=== PATIENT | male | born 1960 | race Caucasian/White ===

== ENCOUNTER 2017-03-08 00:28 | Inpatient (IN) | payer MEDICAID, OTHER ==
[~2017-03-08] VITALS: Ht 185.4 cm; Wt 81.6 kg
[2017-03-08] VITALS (9 sets, daily range): BP systolic 107–140; BP diastolic 63–76
[~2017-03-08 00:28] MED LIST: ATOR40TA28 PO; IBUP-2070 PO; LIPA1CAP18 PO; LOSA25TA21 PO; METO50TA18 PO; MIRT45TA4 PO; OMEP20 PO; SERT100T12 PO; TRAM50TA4 PO; TRAZ-147 PO
[2017-03-08] MEDS ORDERED: LIB25 PO (00:51)
[2017-03-08] MEDS ORDERED: FAMO20 PO (00:51)
[2017-03-08 01:45] LABS: BASOPHILS # (AUTO) 0.02 K/uL (0.00-0.20); BASOPHILS % (AUTO) 0.4 % (0.0-2.0); EOSINOPHILS # (AUTO) 0.19 K/uL (0.00-0.70); EOSINOPHILS % (AUTO) 3.46 % (1.0-6.0); HEMATOCRIT 33.8 % (41-53); HEMOGLOBIN 10.8 g/dL (13.5-17.5); LYMPHOCYTES # (AUTO) 1.5 K/uL (1.0-4.8); LYMPHOCYTES % (AUTO) 26.3 % (22.0-44.0); MEAN CORPUSCULAR HEMOGLOBIN 29.9 pg (26.0-34.0); MEAN CORPUSCULAR HGB CONC 31.9 G/dL (31.0-37.0); MEAN CORPUSCULAR VOLUME 94 fL (80-100); MONOCYTES # (AUTO) 0.5 K/uL (0.1-1.0); MONOCYTES % (AUTO) 9.5 % (2.0-9.0); NEUTROPHILS # (AUTO) 3.4 K/uL (1.8-7.7); NEUTROPHILS % (AUTO) 60.3 % (40.0-70.0); PLATELET COUNT (AUTO) 276 K/uL (150-450); RED BLOOD CELL COUNT(AUTO) 3.61 MIL/uL (4.50-5.90); RED CELL DISTRIBUTION WIDTH 24.7 % (11.5-14.5); WHITE BLOOD COUNT (AUTO) 5.6 K/uL (4.5-11.0)
[2017-03-08 01:52] LABS: ANION GAP 9 mmol/L (8-16); CARBON DIOXIDE 29 mmol/L (22-29); CHLORIDE 98 mmol/L (98-107); CREATININE 0.88 mg/dL (0.60-1.30); GLOMERULAR FILTR. RATE CALC > 60 mL/min (>60); POTASSIUM 3.9 mmol/L (3.5-5.1); SODIUM SERUM 136 mmol/L (136-145); UREA NITROGEN, BLOOD 14 mg/dL (7-18)
[2017-03-08 01:57] LABS: ALANINE AMINOTRANSFERASE 122 U/L (12-78); ALBUMIN 3.9 g/dL (3.4-5.0); ASPARTATE AMINOTRANSFERASE 44 U/L (15-37); BILIRUBIN,TOTAL 0.6 mg/dL (0.1-1.0)
[2017-03-08] MEDS ORDERED: HALOPERIDOL LACTATE 5 MG/ML VIAL IM ONE (03:00)
[2017-03-08] MEDS ORDERED: THIAMINE HCL 100 MG/ML 2ML VIAL IM ONE (03:00)
[2017-03-08] MEDS ORDERED: HydrOXYzine PAMOATE 50 MG CAPSULE PO PRN (03:00)
[2017-03-08] MEDS ORDERED: HALOPERIDOL 5 MG TABLET PO PRN (03:00)
[2017-03-08] MEDS ORDERED: MAGNESIUM HYDROXIDE SUSPENSION 30 ML UDCUP PO PRN (03:00)
[2017-03-08] MEDS ORDERED: LORazepam 2 MG TABLET PO PRN (03:00)
[2017-03-08] MEDS ORDERED: LOPERAMIDE HCL 2 MG CAPSULE PO PRN ×2 (03:00)
[2017-03-08] MEDS ORDERED: ACETAMINOPHEN 325 MG TABLET PO PRN (03:00)
[2017-03-08] MEDS ORDERED: LORazepam 2 MG/ML VIAL IM ONE (03:00)
[2017-03-08] MEDS ORDERED: PROMETHAZINE HCL 25 MG TABLET PO PRN (03:00)
[2017-03-08] MEDS ORDERED: MAG HYDROX/AL HYDROX/SIMETH ES 30 ML SUSPENSION UDCUP PO PRN (03:00)
[2017-03-08] MEDS ORDERED: CYANOCOBALAMIN 1,000 MCG/ML VIAL IM ONE (03:00)
[2017-03-08 03:03] LABS: RBC MORPHOLOGY COMMENT ABNORMAL RBC MORPH
[2017-03-08 04:27] LABS: APPEARANCE,URINE CLEAR (CLEAR); GLUCOSE, URINE (UA) NEGATIVE (NEGATIVE); KETONES,URINE NEGATIVE (NEGATIVE); LEUKOCYTE ESTERASE ,URINE NEGATIVE (NEGATIVE); OCCULT BLOOD,URINE NEGATIVE (NEGATIVE); PH,URINE 7.5 (5.0-8.0); PROTEIN,URINE POS 1+ (NEGATIVE)
[2017-03-08 04:28] LABS: ADD UA MICROSCOPIC NO
[2017-03-08] MEDS ORDERED: INFLUENZA VIRUS VACCINE QVS 2017-18 (3YR+)/PF 60 MCG/0.5 ML SYRINGE IM ONE (07:15)
[2017-03-08] MEDS: MULTIVITAMINS WITH MINERALS, THERAPEUTIC TABLET PO SCH (10:04)
[2017-03-08] MEDS: THIAMINE HCL 100 MG TABLET PO SCH ×2 (10:04→16:00)
[2017-03-08] MEDS: FOLIC ACID 1 MG TABLET PO SCH (10:04)
[2017-03-08] MEDS: LORazepam 2 MG TABLET PO PRN (10:10)
[2017-03-08] MEDS: TraZODone HCL 100 MG TABLET PO SCH (20:15)
[2017-03-09] VITALS (9 sets, daily range): BP systolic 99–138; BP diastolic 66–101
[2017-03-09] MEDS ORDERED: LORazepam 2 MG TABLET PO PRN (07:00)
[2017-03-09 07:11] LABS: CHOL/HDL RATIO 2.6 (4.2-7.3)
[2017-03-09] MEDS: FOLIC ACID 1 MG TABLET PO SCH (09:38)
[2017-03-09] MEDS: MULTIVITAMINS WITH MINERALS, THERAPEUTIC TABLET PO SCH (09:39)
[2017-03-09] MEDS: SERTRALINE HCL 100 MG TABLET PO SCH (09:39)
[2017-03-09] MEDS: LORazepam 2 MG TABLET PO SCH ×4 (09:39→20:30)
[2017-03-09] MEDS: THIAMINE HCL 100 MG TABLET PO SCH ×2 (09:39→16:51)
[2017-03-09] MEDS: GuaiFENesin/D-METHORPHAN [SUGAR-FREE] 200-20MG/10 ML SYRUP UDCUP PO PRN (16:52)
[2017-03-09] MEDS: TraZODone HCL 100 MG TABLET PO SCH (20:30)
[2017-03-10] MEDS: LORazepam 2 MG TABLET PO PRN ×2 (00:43→11:51)
[2017-03-10 00:48] VITALS: BP 140/95
[2017-03-10 00:51] VITALS: BP 140/95
[2017-03-10] MEDS: MULTIVITAMINS WITH MINERALS, THERAPEUTIC TABLET PO SCH (09:23)
[2017-03-10] MEDS: FOLIC ACID 1 MG TABLET PO SCH (09:23)
[2017-03-10] MEDS: THIAMINE HCL 100 MG TABLET PO SCH ×2 (09:24→16:42)
[2017-03-10] MEDS: SERTRALINE HCL 100 MG TABLET PO SCH (09:24)
[2017-03-10] MEDS: LORazepam 2 MG TABLET PO SCH ×4 (09:26→20:28)
[2017-03-10 13:20] VITALS: BP 133/74
[2017-03-10] MEDS: FAMOTIDINE 20 MG TABLET PO SCH (13:22)
[2017-03-10] MEDS: LOSARTAN POTASSIUM 25 MG TABLET PO SCH (13:22)
[2017-03-10 13:47] VITALS: BP 132/88
[2017-03-10 16:32] VITALS: BP 120/76
[2017-03-10] MEDS: METOPROLOL TARTRATE 50 MG TABLET PO SCH (16:41)
[2017-03-10] MEDS: AMYLASE/LIPASE/PROTEASE 60/12/38 MU DR CAPSULE PO SCH (17:18)
[2017-03-10] MEDS ORDERED: ALBUTEROL SULFATE HFA 90 MCG/PUFF 8 GM INHALER IH PRN (17:30)
[2017-03-10] MEDS ORDERED: MAG HYDROX/AL HYDROX/SIMETH ES 30 ML SUSPENSION UDCUP PO PRN (17:30)
[2017-03-10] MEDS ORDERED: IBUPROFEN 600 MG TABLET PO PRN (17:30)
[2017-03-10] MEDS ORDERED: LOPERAMIDE HCL 2 MG CAPSULE PO PRN (17:30)
[2017-03-10] MEDS ORDERED: MAGNESIUM HYDROXIDE SUSPENSION 30 ML UDCUP PO PRN (17:30)
[2017-03-10] MEDS ORDERED: ACETAMINOPHEN 325 MG TABLET PO PRN (17:30)
[2017-03-10] MEDS ORDERED: BACITRACIN 28.4 GM OINTMENT TP PRN (17:30)
[2017-03-10] MEDS ORDERED: PETROLATUM,WHITE 71 GM JELLY TP PRN (17:30)
[2017-03-10] MEDS ORDERED: CloNIDine HCL 0.1 MG TABLET PO PRN (17:30)
[2017-03-10] MEDS ORDERED: ONDANSETRON HCL 4 MG TABLET PO PRN (17:30)
[2017-03-10] MEDS ORDERED: BENZOCAINE/MENTHOL LOZENGE [8 LOZENGES/PACKET] MM PRN (17:30)
[2017-03-10] MEDS: DOCUSATE SODIUM 100 MG CAPSULE PO SCH (18:55)
[2017-03-10] MEDS: TraZODone HCL 100 MG TABLET PO SCH (20:28)
[2017-03-10] MEDS: ATORVASTATIN CALCIUM 40 MG TABLET PO SCH (20:29)
[2017-03-11 00:14] VITALS: BP 133/74
[2017-03-11 01:32] VITALS: BP 128/75
[2017-03-11] MEDS: AMYLASE/LIPASE/PROTEASE 60/12/38 MU DR CAPSULE PO SCH ×3 (06:56→17:19)
[2017-03-11] MEDS ORDERED: LORazepam 1 MG TABLET PO PRN (07:00)
[2017-03-11 07:35] LABS: HEMOGLOBIN 10.4 g/dL (13.5-17.5); MEAN CORPUSCULAR HEMOGLOBIN 30.1 pg (26.0-34.0); MEAN CORPUSCULAR HGB CONC 32.4 G/dL (31.0-37.0); MEAN CORPUSCULAR VOLUME 93 fL (80-100); PLATELET COUNT (AUTO) 199 K/uL (150-450); RED BLOOD CELL COUNT(AUTO) 3.45 MIL/uL (4.50-5.90); RED CELL DISTRIBUTION WIDTH 24.9 % (11.5-14.5); WHITE BLOOD COUNT (AUTO) 3.9 K/uL (4.5-11.0)
[2017-03-11] MEDS: LOSARTAN POTASSIUM 25 MG TABLET PO SCH (08:08)
[2017-03-11] MEDS: SERTRALINE HCL 100 MG TABLET PO SCH (08:09)
[2017-03-11] MEDS: FAMOTIDINE 20 MG TABLET PO SCH (08:09)
[2017-03-11] MEDS: LORazepam 1 MG TABLET PO SCH ×4 (08:11→20:09)
[2017-03-11] MEDS: DOCUSATE SODIUM 100 MG CAPSULE PO SCH (08:12)
[2017-03-11] MEDS: FOLIC ACID 1 MG TABLET PO SCH (08:12)
[2017-03-11] MEDS: OMEPRAZOLE 20 MG CAPSULE PO SCH (08:12)
[2017-03-11] MEDS: THIAMINE HCL 100 MG TABLET PO SCH ×2 (08:14→17:18)
[2017-03-11] MEDS: MULTIVITAMINS WITH MINERALS, THERAPEUTIC TABLET PO SCH (08:14)
[2017-03-11] MEDS: GuaiFENesin/D-METHORPHAN [SUGAR-FREE] 200-20MG/10 ML SYRUP UDCUP PO PRN (08:15)
[2017-03-11 08:29] LABS: ANION GAP 7 mmol/L (8-16); CALCIUM, TOTAL 8.8 mg/dL (8.8-10.5); CARBON DIOXIDE 28 mmol/L (22-29); CHLORIDE 103 mmol/L (98-107); CHOL/HDL RATIO 2.6 (4.2-7.3); CREATININE 1.09 mg/dL (0.60-1.30); GLOMERULAR FILTR. RATE CALC > 60 mL/min (>60); PHOSPHORUS 4.6 mg/dL (2.5-4.9); POTASSIUM 4.1 mmol/L (3.5-5.1); SODIUM SERUM 138 mmol/L (136-145); THYROID STIMULATING HORMONE 0.88 uIU/mL (0.36-3.74); UREA NITROGEN, BLOOD 13 mg/dL (7-18)
[2017-03-11 08:47] VITALS: BP 134/94
[2017-03-11 08:51] VITALS: BP 134/94
[2017-03-11 09:54] LABS: BAND NEUTROPHILS % (MANUAL) 2 % (1-5); EOSINOPHILS % (MANUAL) 1 % (1-6); LYMPHOCYTES % (MANUAL) 15 % (22-44); TOTAL CELLS COUNTED 100
[2017-03-11 10:01] LABS: RBC MORPHOLOGY COMMENT ABNORMAL R
[2017-03-11 16:00] VITALS: BP 137/81
[2017-03-11] MEDS: METOPROLOL TARTRATE 50 MG TABLET PO SCH (17:18)
[2017-03-11] MEDS: ATORVASTATIN CALCIUM 40 MG TABLET PO SCH (20:09)
[2017-03-11] MEDS: TraZODone HCL 100 MG TABLET PO SCH (20:09)
[2017-03-12 06:34] VITALS: BP 111/73
[2017-03-12 06:36] VITALS: BP 111/73
[2017-03-12] MEDS: AMYLASE/LIPASE/PROTEASE 60/12/38 MU DR CAPSULE PO SCH ×3 (06:45→18:18)
[2017-03-12 07:00] LABS: HEPATITIS Bs ANTIGEN SCREEN P Negative (Negative); HEPATITIS C AB SCREEN <0.1 s/co ratio (0.0-0.9)
[2017-03-12] MEDS ORDERED: LORazepam 1 MG TABLET PO PRN (07:00)
[2017-03-12] MEDS: DOCUSATE SODIUM 100 MG CAPSULE PO SCH (08:29)
[2017-03-12] MEDS: FOLIC ACID 1 MG TABLET PO SCH (08:29)
[2017-03-12] MEDS: MULTIVITAMINS WITH MINERALS, THERAPEUTIC TABLET PO SCH (08:29)
[2017-03-12] MEDS: THIAMINE HCL 100 MG TABLET PO SCH ×2 (08:29→16:14)
[2017-03-12] MEDS: SERTRALINE HCL 100 MG TABLET PO SCH (08:30)
[2017-03-12] MEDS: OMEPRAZOLE 20 MG CAPSULE PO SCH (08:30)
[2017-03-12] MEDS: FAMOTIDINE 20 MG TABLET PO SCH (08:30)
[2017-03-12 08:58] VITALS: BP 102/62
[2017-03-12] MEDS: LOSARTAN POTASSIUM 25 MG TABLET PO SCH (09:00)
[2017-03-12 09:01] VITALS: BP 102/62
[2017-03-12] MEDS ORDERED: OMEP20 PO (09:54)
[2017-03-12] MEDS ORDERED: DSS100 PO (09:54)
[2017-03-12] MEDS: LORazepam 2 MG TABLET PO PRN ×2 (16:14→23:54)
[2017-03-12] MEDS: METOPROLOL TARTRATE 50 MG TABLET PO SCH (16:14)
[2017-03-12 16:21] VITALS: BP 121/85
[2017-03-12] MEDS: TraZODone HCL 100 MG TABLET PO SCH (21:02)
[2017-03-12] MEDS: ATORVASTATIN CALCIUM 40 MG TABLET PO SCH (21:02)
[2017-03-13] VITALS: BP 128/79
[2017-03-13] MEDS: AMYLASE/LIPASE/PROTEASE 60/12/38 MU DR CAPSULE PO SCH ×3 (06:47→17:40)
[2017-03-13] MEDS: SERTRALINE HCL 100 MG TABLET PO SCH (08:28)
[2017-03-13] MEDS: THIAMINE HCL 100 MG TABLET PO SCH ×2 (08:28→17:40)
[2017-03-13] MEDS: OMEPRAZOLE 20 MG CAPSULE PO SCH (08:28)
[2017-03-13] MEDS: MULTIVITAMINS WITH MINERALS, THERAPEUTIC TABLET PO SCH (08:29)
[2017-03-13] MEDS: DOCUSATE SODIUM 100 MG CAPSULE PO SCH (08:29)
[2017-03-13] MEDS: FOLIC ACID 1 MG TABLET PO SCH (08:29)
[2017-03-13] MEDS: FAMOTIDINE 20 MG TABLET PO SCH (08:29)
[2017-03-13] MEDS: LOSARTAN POTASSIUM 25 MG TABLET PO SCH (08:29)
[2017-03-13 09:34] VITALS: BP 117/87
[2017-03-13 16:30] VITALS: BP 123/67
[2017-03-13] MEDS: METOPROLOL TARTRATE 50 MG TABLET PO SCH (17:40)
[2017-03-13] MEDS: LORazepam 2 MG TABLET PO PRN (18:30)
[2017-03-13] MEDS: ATORVASTATIN CALCIUM 40 MG TABLET PO SCH (21:03)
[2017-03-13] MEDS: TraZODone HCL 100 MG TABLET PO SCH (21:03)
[2017-03-13] MEDS: ZOLPIDEM TARTRATE 10 MG TABLET PO PRN (23:44)
[2017-03-14 03:51] VITALS: BP 125/72
[2017-03-14] MEDS: AMYLASE/LIPASE/PROTEASE 60/12/38 MU DR CAPSULE PO SCH ×3 (07:06→17:11)
[2017-03-14 08:00] VITALS: BP 129/79
[2017-03-14] MEDS: FOLIC ACID 1 MG TABLET PO SCH (08:29)
[2017-03-14] MEDS: THIAMINE HCL 100 MG TABLET PO SCH ×2 (08:29→17:11)
[2017-03-14] MEDS: OMEPRAZOLE 20 MG CAPSULE PO SCH (08:29)
[2017-03-14] MEDS: MULTIVITAMINS WITH MINERALS, THERAPEUTIC TABLET PO SCH (08:29)
[2017-03-14] MEDS: DOCUSATE SODIUM 100 MG CAPSULE PO SCH (08:29)
[2017-03-14] MEDS: SERTRALINE HCL 100 MG TABLET PO SCH (08:29)
[2017-03-14] MEDS: LOSARTAN POTASSIUM 25 MG TABLET PO SCH (08:30)
[2017-03-14] MEDS: FAMOTIDINE 20 MG TABLET PO SCH (08:30)
[2017-03-14] MEDS: LORazepam 2 MG TABLET PO PRN ×2 (08:32→17:12)
[2017-03-14 16:41] VITALS: BP 113/77
[2017-03-14] MEDS: METOPROLOL TARTRATE 50 MG TABLET PO SCH (17:11)
[2017-03-14] MEDS ORDERED: MINERAL OIL/PETROLATUM 120 GM CREAM TP PRN (19:30)
[2017-03-14] MEDS: TraZODone HCL 100 MG TABLET PO SCH (20:09)
[2017-03-14] MEDS: ATORVASTATIN CALCIUM 40 MG TABLET PO SCH (20:09)
[2017-03-15 05:49] VITALS: BP 122/67
[2017-03-15] MEDS: AMYLASE/LIPASE/PROTEASE 60/12/38 MU DR CAPSULE PO SCH ×3 (06:34→18:00)
[2017-03-15 08:00] VITALS: BP 115/76
[2017-03-15] MEDS: FAMOTIDINE 20 MG TABLET PO SCH (08:12)
[2017-03-15] MEDS: OMEPRAZOLE 20 MG CAPSULE PO SCH (08:12)
[2017-03-15] MEDS: MULTIVITAMINS WITH MINERALS, THERAPEUTIC TABLET PO SCH (08:12)
[2017-03-15] MEDS: THIAMINE HCL 100 MG TABLET PO SCH ×2 (08:12→17:55)
[2017-03-15] MEDS: LOSARTAN POTASSIUM 25 MG TABLET PO SCH (08:12)
[2017-03-15] MEDS: LORazepam 2 MG TABLET PO PRN ×2 (08:12→22:06)
[2017-03-15] MEDS: DOCUSATE SODIUM 100 MG CAPSULE PO SCH (08:13)
[2017-03-15] MEDS: SERTRALINE HCL 100 MG TABLET PO SCH (08:13)
[2017-03-15] MEDS: FOLIC ACID 1 MG TABLET PO SCH (08:13)
[2017-03-15] MEDS ORDERED: AMYL1CAP62 PO (14:07)
[2017-03-15] MEDS: METOPROLOL TARTRATE 50 MG TABLET PO SCH (17:55)
[2017-03-15 18:43] VITALS: BP 119/71
[2017-03-15] MEDS: ATORVASTATIN CALCIUM 40 MG TABLET PO SCH (20:22)
[2017-03-15] MEDS: TraZODone HCL 100 MG TABLET PO SCH (20:22)
[2017-03-15] MEDS: ZOLPIDEM TARTRATE 10 MG TABLET PO PRN (22:06)
[2017-03-16 06:00] VITALS: BP 123/74
[2017-03-16] MEDS: AMYLASE/LIPASE/PROTEASE 60/12/38 MU DR CAPSULE PO SCH (06:59)
[2017-03-16] MEDS: FAMOTIDINE 20 MG TABLET PO SCH (08:05)
[2017-03-16] MEDS: SERTRALINE HCL 100 MG TABLET PO SCH (08:05)
[2017-03-16] MEDS: LORazepam 2 MG TABLET PO PRN (08:05)
[2017-03-16] MEDS: OMEPRAZOLE 20 MG CAPSULE PO SCH (08:05)
[2017-03-16] MEDS: MULTIVITAMINS WITH MINERALS, THERAPEUTIC TABLET PO SCH (08:06)
[2017-03-16] MEDS: DOCUSATE SODIUM 100 MG CAPSULE PO SCH (08:06)
[2017-03-16] MEDS: THIAMINE HCL 100 MG TABLET PO SCH (08:06)
[2017-03-16] MEDS: LOSARTAN POTASSIUM 25 MG TABLET PO SCH (08:06)
[2017-03-16] MEDS: FOLIC ACID 1 MG TABLET PO SCH (08:06)
== END 2017-03-16 10:00 | disposition home or self-care (01) | DRG 751 ==
LOC: EMS 00:29 → 3EI 02:42 → UNDOADMIN 02:52
PROVIDERS: ADMIT Psychiatry & Neurology Psychiatry; ATTEND Psychiatry & Neurology Psychiatry
DX: F33.2 Major depressive disorder, recurrent severe without psychotic features (principal); K70.30 Alcoholic cirrhosis of liver without ascites; K86.1 Other chronic pancreatitis; R45.851 Suicidal ideations; I10 Essential (primary) hypertension; F10.239 Alcohol dependence with withdrawal, unspecified; E78.5 Hyperlipidemia, unspecified; D63.8 Anemia in other chronic diseases classified elsewhere; E78.00 Pure hypercholesterolemia, unspecified; F43.10 Post-traumatic stress disorder, unspecified; G47.00 Insomnia, unspecified; I25.10 Atherosclerotic heart disease of native coronary artery without angina pectoris; K21.9 Gastro-esophageal reflux disease without esophagitis; R51 Headache; F41.9 Anxiety disorder, unspecified; Z59.0 Homelessness; Z90.411 Acquired partial absence of pancreas; Z95.1 Presence of aortocoronary bypass graft; Z88.2 Allergy status to sulfonamides; Z91.018 Allergy to other foods; Z79.899 Other long term (current) drug therapy
CPT/HCPCS: 80074; 82306; 83735; 84100; 84443; 85007; 87081; 96372; 99285; G0480; J1630; J2060; J3411; J3420